=== PATIENT | female | born 2000 | race Caucasian/White ===

== ENCOUNTER 2019-01-12 18:00 | Emergency (ER) | payer OTHER ==
[~2019-01-12] VITALS: Ht 167.6 cm; Wt 68.2 kg
[2019-01-12 18:07] VITALS: BP 123/79; TEMP 98.2
[2019-01-12 18:40] LABS: COLLECTION METHOD CLEAN CATCH
[2019-01-12 18:47] LABS: BASO # 0.1 (0.0-0.2); BASO % 0.5 % (0.0-2.0); EOS % 0.2 % (0-4.0); GRAN # 8.1 (1.4-6.5); GRAN % 81.9 % (42.2-75.2); HEMATOCRIT 40.5 % (35.0-45.0); HEMOGLOBIN 13.7 g/dl (12.0-15.0); LYMPH # 1.1 (1.2-3.4); LYMPH % 11.5 % (20.0-51.0); MEAN CELL VOLUME 91 fl (80.0-95.0); MEAN CORPUSCULAR HEMOGLOBIN 31 pg (26.0-32.0); MEAN CORPUSCULAR HGB CONC 34 g/dl (33.0-37.0); MEAN PLATELET VOLUME 12.3 fl (7.4-10.4); MONO # 0.6 (0.1-0.6); MONO % 5.6 % (1.7-9.3); PLATELET COUNT 213 K/mm3 (130-400); RED BLOOD COUNT 4.46 M/mm3 (4.10-5.30); REDCELL DISTRIBUTION WIDTH-CV 11.9 % (11.5-14.5)
[2019-01-12 18:49] LABS: MUCOUS Present /lpf; PH 5 (5-8); URINE APPEARANCE Cloudy; URINE BACTERIA Moderate /hpf; URINE BILIRUBIN Negative (NEGATIVE); URINE BLOOD 2+ (NEGATIVE); URINE CALCIUM OXALATE CRYSTAL Present /hpf; URINE COLOR Amber; URINE GLUCOSE Negative (NEGATIVE); URINE KETONE 1+ (NEGATIVE); URINE LEUKOCYTE ESTERASE Trace (NEGATIVE); URINE NITRATE Negative (NEGATIVE); URINE PROTEIN(semi-quant) 2+ (NEGATIVE)
[2019-01-12] MEDS ORDERED: VIBERZI100 MG PO (18:57)
[2019-01-12 19:06] LABS: ALANINE AMINOTRANSFERASE 11 U/L (9-52); ALKALINE PHOSPHATASE 61 U/L (50-136); ANION GAP 13 mmol/L (7-16); AST,SGOT 23 U/L (15-37); BILIRUBIN,TOTAL 0.3 mg/dL (0.0-1.0); BLOOD UREA NITROGEN 16 mg/dL (7-17); CALCIUM 9.9 mg/dL (8.4-10.2); CARBON DIOXIDE 21 mmol/L (22-30); CHLORIDE 105 mmol/L (98-107); CREATININE, serum 1.15 (0.52-1.25); GLUCOSE 94 mg/dL (74-106); POTASSIUM 3.9 mmol/L (3.4-5.0); SODIUM 139 mmol/L (137-145); TOTAL PROTEIN 8.4 gm/dL (6.4-8.2)
[2019-01-12 19:07] LABS: C-REACTIVE PROTEIN < 0.5 mg/dL (0.0-0.9)
[2019-01-12 21:18] LABS: COLLECTION METHOD CLEAN CATCH
[2019-01-12] MEDS ORDERED: ZOFRAN ODT4 MG PO (21:18)
[2019-01-12] MEDS ORDERED: PERCOCET 325 MG1 TA2 PO (21:18)
[2019-01-12 21:23] LABS: MUCOUS Present /lpf; PH 5 (5-8); SQUAMOUS EPITHELIAL 0-2 /hpf; URINE APPEARANCE Clear; URINE BACTERIA Rare /hpf; URINE BILIRUBIN Negative (NEGATIVE); URINE BLOOD 1+ (NEGATIVE); URINE COLOR Yellow; URINE GLUCOSE Negative (NEGATIVE); URINE KETONE 2+ (NEGATIVE); URINE LEUKOCYTE ESTERASE Negative (NEGATIVE); URINE NITRATE Negative (NEGATIVE); URINE PROTEIN(semi-quant) Negative (NEGATIVE); URINE UROBILINOGEN Negative (NEGATIVE)
[2019-01-12 21:45] VITALS: PULSE 86
== END 2019-01-12 21:45 | disposition home or self-care (01) ==
LOC: COL.ER 18:00
PROVIDERS: Nurse Practitioner
DX: N20.0 Calculus of kidney (principal); K58.9 Irritable bowel syndrome, unspecified; Z98.890 Other specified postprocedural states
CPT/HCPCS: J1170; J1885; J2405; J7030; Q9967